=== PATIENT | male | born 1960 | race Hispanic/Latino ===

== ENCOUNTER 2023-09-19 08:43 | Outpatient (CLI) | payer OTHER ==
[2023-09-19 09:34] LABS: #Basophils 0.1 10x3/uL (0.0-0.2); #Eosinphils 0.2 10x3/uL (0.0-0.5); #Monocytes 0.4 10x3/uL (0.0-1.1); #Neutrophils 3.9 10x3/uL (1.5-8.4); %Basophils 0.8 % (0.0-2.0); %Eosinophils 2.5 % (0.0-6.0); %Lymphocytes 24.9 % (18.0-47.0); %Monocytes 6.7 % (0.0-10.0); %Neutrophils 64.9 % (40.0-75.0); Hematocrit 41.8 % (38.8-50.0); Hemoglobin 14.6 g/dL (13.5-17.5); Mean Corpuscular HGB CONC 34.9 g/dL (32.0-36.0); Mean Corpuscular Hemoglobin 29.9 pg (27.0-33.0); Mean Corpuscular Volume 85.5 fl (81.2-95.1); Platelet Count 140 10x3/uL (150-450); RBC Distribution Width 13.2 % (11.5-14.5); Red Blood Cell (RBC) Count 4.89 10x6/uL (4.32-5.72)
[2023-09-19 09:38] LABS: Anion Gap 13 mmol/L (10-20); BUN (Urea Nitrogen) 18 mg/dL (8.4-25.7); Calc. Creatinine Clearance 0 mL/min (70-130); Calcium 9.2 mg/dL (7.8-10.44); Carbon Dioxide 26 mmol/L (23-31); Chloride 106 mmol/L (98-107); Estimated GFR 97; Glucose 117 mg/dL (80-115); Potassium 3.8 mmol/L (3.5-5.1); Sodium 141 mmol/L (136-145)
== END 2023-09-19 08:44 | disposition home or self-care (01) ==
LOC: LABBT 08:43
PROVIDERS: ATTEND Surgery
DX: Z01.818 Encounter for other preprocedural examination (principal); K42.9 Umbilical hernia without obstruction or gangrene
CPT/HCPCS: 80048; 85025; 93005; 93010

== ENCOUNTER 2023-09-28 08:12 | Day surgery (SDC) | payer OTHER ==
[2023-09-19 09:04] VITALS: BMI 36.0
[2023-09-28] MEDS ORDERED: PROPOFOL 20 ML ONE (08:14)
[2023-09-28] MEDS ORDERED: Lidocaine 1% PF 5 ML VIAL ONE ×2 (08:14→09:54)
[2023-09-28] MEDS ORDERED: CEFAZOLIN 2 GM VIAL ONE (08:29)
[2023-09-28] MEDS ORDERED: Sodium Chloride 0.9% 100 ML ONE (08:30)
[2023-09-28] MEDS ORDERED: EPINEPHrine 1 MG/ML VIAL ONE (09:26)
[2023-09-28] MEDS ORDERED: Bupivacaine 0.25% HCL 30 ML VIAL ONE (09:26)
[2023-09-28] MEDS ORDERED: Lidocaine 2% PF 5 ML VIAL ONE (09:27)
[2023-09-28] MEDS ORDERED: fentaNYL PF 100 MCG/2 ML SYRINGE ONE (09:30)
[2023-09-28] MEDS ORDERED: Famotidine/PF 20 mg/2ml Vial ONE (09:39)
[2023-09-28] MEDS ORDERED: Dexamethasone 4 mg/ml Vial ONE (09:54)
[2023-09-28] MEDS ORDERED: Ondansetron PF 4 MG/2 ML Vial ONE (10:08)
[2023-09-28] MEDS ORDERED: HYDROcodone/Acetaminophen 5/325 mg Tablet ONE (11:33)
== END 2023-09-28 12:30 | disposition home or self-care (01) ==
LOC: SDC 08:12
PROVIDERS: ATTEND Surgery
PROC: 0DQV4ZZ Repair Mesentery, Percutaneous Endoscopic Approach (ICD-10-PCS; principal; 2023-09-28)
DX: K42.9 Umbilical hernia without obstruction or gangrene (principal); I10 Essential (primary) hypertension; E07.9 Disorder of thyroid, unspecified; F32.A Depression, unspecified; Z79.84 Long term (current) use of oral hypoglycemic drugs; Z79.890 Hormone replacement therapy; Z79.899 Other long term (current) drug therapy; Z98.890 Other specified postprocedural states
CPT/HCPCS: C1889; J0171; J0665; J1100; J2001; J2405; J2704; J3490; S0028